=== PATIENT | female | born 1955 ===

== ENCOUNTER 2018-04-26 08:31 | Emergency (ER) | payer BC ==
[2018-04-26 09:15] VITALS: BP 125/69
--- NOTE | 2018-04-26 09:37 | UC ---
General HPI - HPI Summary HPI Summary: Pleasant 63 yo female c/o progressive cough last several days. Thinks possibly aspirated d/t chronic GI reflux, hx similar sx. Now productive but unsure what color. No report of fever / chills. No current GI plans. No rash. No sore throat. - History of Current Complaint Chief Complaint: UCRespiratory Stated Complaint: COUGH Time Seen by Provider: 04/26/18 09:34 Hx Obtained From: Patient Pain Intensity: 0 - Allergy/Home Medications Allergies/Adverse Reactions: Allergies Allergy/AdvReac Type Severity Reaction Status Date / Time No Known Allergies Allergy Verified 04/26/18 09:08 Home Medications: Home Medications Calcium Polycarbophil TAB* [Fibercon TAB*] 625 mg PO DAILY 04/26/18 [History Confirmed 04/26/18] Cholecalciferol TAB* [Vitamin D TAB*] 5,000 unit PO DAILY 04/26/18 [History Confirmed 04/26/18] Citalopram TAB* [CeleXA TAB*] 10 mg PO DAILY 04/26/18 [History Confirmed ] Dm/Acetaminophen/Doxylamine [Vicks Nyquil Cold & Flu N] 1 liq PO BEDTIME PRN [History Confirmed 04/26/18] Ranitidine TAB (NF) [Zantac TAB (NF)] 300 mg PO DAILY 04/26/18 [History Confirmed 04/26/18] Vitamin THERAPEUTIC TAB* [Theragran TAB*] 1 tab PO DAILY 04/26/18 [History Confirmed 04/26/18] PMH/Surg Hx/FS Hx/Imm Hx Previously Healthy: Yes - see hpi - Surgical History Surgical History: Yes Surgery Procedure, Year, and Place: Partial Thyroidectomy, ~2007, [place]; Bilateral Oopherectomy, ~2005, [facility] - Social History Alcohol Use: None Substance Use Type: None Smoking Status (MU): Never Smoked Tobacco Review of Systems Constitutional: Fatigue Skin: Negative Eyes: Negative ENT: Negative Respiratory: Cough Cardiovascular: Negative Gastrointestinal: Negative Genitourinary: Negative - see hpi Motor: Negative Neurovascular: Negative Musculoskeletal: Negative Neurological: Negative Psychological: Negative Is Patient Immunocompromised?: No All Other Systems Reviewed And Are Negative: Yes Physical Exam Triage Information Reviewed: Yes Appearance: Well-Nourished - sitting up conversing in full sentances Vital Signs: Initial Vital Signs Temp 98.2 F 04/26/18 09:05 Pulse 62 04/26/18 09:05 Resp 18 04/26/18 09:05 BP 125/69 04/26/18 09:05 Pulse Ox 99 04/26/18 09:05 Eye Exam: Normal ENT: Positive: Pharyngeal erythema - mild post pharyngeal redness, c/w cough. No sores / exudates appreciated. No stridor., Other - R TM + near complete cerumen impaction, a small amount of stewart TM is visible. L TM - dull, intact, without impaction Neck exam: Normal Neck: Positive: Supple, Nontender Respiratory Exam: Other - BS equal. Mild occas exp wheeze. + rhonchorus cough. Cardiovascular Exam: Normal Cardiovascular: Positive: RRR, No Murmur, Pulses Normal Abdominal Exam: Normal Abdomen Description: Positive: Nontender Musculoskeletal Exam: Normal - moves x 4 ext's, gait steady Musculoskeletal: Positive: Strength Intact Neurological Exam: Normal - grossly nonfocal Psychological Exam: Normal - conversing easily and appropriately Skin Exam: Normal - no visible or reported rash Course/Dx - Course Course Of Treatment: Duoneb x 1 improved. Rx as below, Ms. Lozano seems pleased , and similar rx / tx has helped in the past. Questions as posed answered to the best of my ability. - Differential Dx - Multi-Symptom Provider Diagnoses: Bronchitis with wheezing Discharge - Sign-Out/Discharge Documenting (check all that apply): Patient Departure - Discharge Plan Condition: Stable Disposition: HOME Prescriptions: Albuterol HFA INHALER* [Ventolin HFA Inhaler*] 1 - 2 puff INH Q4H PRN #1 mdi PRN Reason: Wheezing Azithromyxin LUCHO (NF) [Z-Lucho (Zithromax) 250 mg tabs #6] 2 tab PO .TODAY, THEN 1 DAILY #6 tab predniSONE TAB* [Deltasone 10 MG TAB*] 10 mg PO DAILY #20 tab Patient Education Materials: Acute Bronchitis (ED), Bronchospasm (ED) Referrals: Patricia COLE,Alta Rodríguez [Primary Care Provider] - Additional Instructions: Follow up with your primary care physician - call for appointment next week if possible. Seek medical attention for worse or new problems in the meantime. - Billing Disposition and Condition Condition: STABLE Disposition: Home
[2018-04-26] MEDS ORDERED: Albuterol/Ipratropium NEB.SOL* Albuterol 2.5 MG/Ipratropium 0.5 MG 3 ML INH ONE (09:51)
== END 2018-04-26 10:15 | disposition home or self-care (01) ==
LOC: UCCORT 08:31
DX: J40 Bronchitis, not specified as acute or chronic (principal); R06.2 Wheezing
CPT/HCPCS: 99202; A9270-GY; G0463